=== PATIENT | male | born 1990 | race Hispanic/Latino ===

== ENCOUNTER 2018-07-11 20:53 | Emergency (ER) | payer MEDICAID ==
--- NOTE | 2018-07-11 21:17 | ED PDOC ---
Arrival/HPI - General Time Seen by Provider: 07/11/18 21:14 Historian: Patient - History of Present Illness Narrative History of Present Illness (Text): 07/11/18 21:14 27 y/o male, no significant pmh, nkda, last tetanus doesn't remember, c/o rt. hand abrasion and fall about 2 hours ago. Pt. stated that he was running and playing soccer, fall and landed on the rt. hand region, sustained abrasion on the rt. hand dorsum and bruising on the rt. hand palmar, no wrist pain, no forearm or elbow pain, no numbness or tingling, no rash, no night sweat, no head /neck/back injury, no other medical or psychological complaints. Past Medical History - Provider Review Nursing Documentation Reviewed: Yes Family/Social History - Physician Review Nursing Documentation Reviewed: Yes Family/Social History: Unknown Family HX Allergies/Home Meds Allergies/Adverse Reactions: Allergies tree nut Allergy (Verified 07/11/18 21:25) ANAPHYLAXIS milk Adverse Reaction (Verified 07/11/18 21:25) DIARRHEA Review of Systems - Review of Systems Constitutional: absent: Fatigue, Fevers Eyes: absent: Vision Changes ENT: absent: Hearing Changes Respiratory: absent: SOB, Cough, Sputum Cardiovascular: absent: Chest Pain Gastrointestinal: absent: Abdominal Pain, Nausea, Vomiting Musculoskeletal: Arthralgias, Myalgias. absent: Back Pain, Neck Pain, Joint Swelling Skin: Skin Lesions (+abrasion). absent: Rash, Pruritis Neurological: absent: Headache, Dizziness Psychiatric: absent: Anxiety, Depression, Suicidal Ideation Physical Exam Vital Signs Temp Pulse Resp BP Pulse Ox 07/11/18 23:11 62 18 99 07/11/18 21:19 98.7 F 88 18 120/77 97 - Systems Exam Head: Present: Atraumatic, Normocephalic Pupils: Present: PERRL Extroacular Muscles: Present: EOMI Conjunctiva: Present: Normal Mouth: Present: Moist Mucous Membranes Neck: Present: Normal Range of Motion. No: MIDLINE TENDERNESS, Paraspinal Tenderness Respiratory/Chest: Present: Clear to Auscultation, Good Air Exchange. No: Respiratory Distress, Accessory Muscle Use Cardiovascular: Present: Regular Rate and Rhythm, Normal S1, S2. No: Murmurs Abdomen: No: Tenderness, Distention, Peritoneal Signs Back: Present: Normal Inspection. No: CVA Tenderness, Midline Tenderness Upper Extremity: Present: Normal Inspection, Normal ROM, NORMAL PULSES, Neurovascularly Intact, Capillary Refill < 2s, Other (Rt. hand/wrist: visible superficial abrasion approx. 1cm noted, +ttp on the 4th metacarpal region with mild ecchymosis, no laceration, no wrist or scaphoid tenderness, FROM without limitation, sensation intact, motor 5/5, +radial pulse, capillary refill< 2 seconds, neurovascular intact. ). No: Cyanosis, Edema, Deformity Lower Extremity: Present: Normal Inspection, NORMAL PULSES, Normal ROM, Neurovascularly Intact, Capillary Refill < 2 s. No: Edema, Deformity Neurological: Present: GCS=15, CN II-XII Intact, Speech Normal Skin: Present: Warm, Dry, Normal Color. No: Rashes Psychiatric: Present: Alert, Oriented x 3, Normal Insight, Normal Concentration Medical Decision Making ED Course and Treatment: 07/11/18 21:19 Differential: Fracture vs. dislocation vs. contusion vs. abrasion -Rt. hand xray -Wound irrigate abrasion with saline, clean with betadine, bacitracin and gauze dressing. -Tdap/motrin -Observe and reassess 07/11/18 22:27 -Rt. hand xray: displaced based 5th metacarpal fracture -Post reduction xray order. 07/11/18 22:30 PROCEDURE: REDUCTION Performed by the emergency provider Time: 22:30 Consent: Informed consent, after discussion of the risks, benefits, and alternatives to the procedure, was obtained. Timeout: A timeout to verify the correct patient, procedure, and site was performed immediately prior to the procedure. Indication: Rt. hand displaced fracture Location: Rt. hand 5th metacarpal base Sedation: None, 1cc hematoma block with 1% lidocaine after clean with alcohol pad and betadine, bandaid. Pre-procedure neurovascular status: Distal neurovascular status intact. Technique: axial traction. Post-procedure neurovascular status: Distal neurovascular status remains intact. Confirmation: Post-reduction films confirm reduction with improvement. See post- procedure X-Ray interpretation. Post-procedure: Patient tolerated the procedure well with no immediate complications. The reduction site was immobilized with ulnar gutter splint and sling. 07/11/18 23:00 -Post reduction xray show improvement. -All radiology result discussed with the patient including the reduction, importance of outpatient hand follow up. -Discharge home with motrin, ulnar gutter splint, splint, copy of CD, list of hand specialists and pmd within 2 days, return to the ER for any new or worsening signs or symptoms. - RAD Interpretation Radiology Orders: 07/11/18 21:22 HAND RIGHT 3 VIEWS [RAD] Stat 07/11/18 22:25 HAND RIGHT 3 VIEWS [RAD] Stat Rt. hand xray initial: acute proximal base 5th metacarpal fracture. Rt. hand xray post reduction: no significant changes Order Takers Supervisor: Radiologist - Medication Orders Current Medication Orders: Discontinued Medications Ibuprofen (Motrin Tab) 600 mg PO STAT STA Stop: 07/11/18 21:23 Last Admin: 07/11/18 21:29 Dose: 600 mg MAR Pain/Vitals Document 07/11/18 21:29 SF (Rec: 07/11/18 21:29 SF [id number]) Pain Reassessment Is This A Pain ReAssessment? Yes Sleep Is patient sleeping during reassessment? 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 Disposition/Present on Arrival - Present on Arrival Any Indicators Present on Arrival: No History of DVT/PE: No History of Uncontrolled Diabetes: No Urinary Catheter: No History of Decub. Ulcer: No - Disposition Have Diagnosis and Disposition been Completed?: Yes Diagnosis: Fall, Hand contusion, Fractured hand Disposition: HOME/ ROUTINE Disposition Time: 21:20 Patient Plan: Discharge Condition: IMPROVED Additional Instructions: -Discharge home with motrin, ulnar gutter splint, splint, copy of CD, list of hand specialists and pmd within 2 days, return to the ER for any new or worsening signs or symptoms. Prescriptions: Ibuprofen [Motrin Tab] 600 mg PO QID PRN #30 tab PRN Reason: Other Referrals: Teo Gomez MD [Staff Provider] - Follow up with primary Brandin Salinas MD [Staff Provider] - Follow up with primary Ebonie Henriquez MD [Non-Staff] - Follow up with primary Roberto Cooper DO [Staff Provider] - Follow up with primary Forms: WORK NOTE
[2018-07-11] MEDS ORDERED: TDAP Vaccine 0.5 mL Syr IM ONE (21:22)
[2018-07-11 21:26] VITALS: BP 120/77; RESP 18; TEMP 98.7
[2018-07-11 23:15] VITALS: PULSE 62; O2SAT 99
--- NOTE | 2018-07-12 10:58 | RAD ---
PROCEDURE: Right Hand Radiographs. HISTORY: rt. hand fall and injury COMPARISON: None. FINDINGS: BONES: Proximal right 5th metacarpal fracture. JOINTS: Normal. No osteoarthritic changes. SOFT TISSUES: Soft tissue swelling attests to the acuity of the fracture. OTHER FINDINGS: None. IMPRESSION: Acute proximal fracture right 5th metacarpal without intra-articular component. Angulation of the major fracture fragments identified. Concordant results with the preliminary interpretation rendered by the emergency department physician procedure.
--- NOTE | 2018-07-12 11:01 | RAD ---
PROCEDURE: Right Hand Radiographs. HISTORY: reduction COMPARISON: July 11, 2018. 21:42. FINDINGS: BONES: Stable appearance, configuration of major fracture fragments proximal 5th metacarpal. JOINTS: Normal. No osteoarthritic changes. SOFT TISSUES: Soft tissue swelling attests to the acuity of the fracture. OTHER FINDINGS: None. IMPRESSION: No significant change following close reduction. Concordant results with the preliminary interpretation rendered by the emergency department physician procedure.
== END 2018-07-11 23:25 | disposition home or self-care (01) ==
LOC: ED 20:53
DX: S62.316A Displaced fracture of base of fifth metacarpal bone, right hand, initial encounter for closed fracture (principal); S60.221A Contusion of right hand, initial encounter; W18.39XA Other fall on same level, initial encounter; Y93.66 Activity, soccer; Y92.39 Other specified sports and athletic area as the place of occurrence of the external cause; Z23 Encounter for immunization

== ENCOUNTER 2019-02-22 23:00 | Emergency (ER) | payer MEDICAID ==
[2019-02-23 00:01] VITALS: BP 106/71; PULSE 68; RESP 18; TEMP 98.4; O2SAT 96
--- NOTE | 2019-02-23 01:48 | ED PDOC ---
Arrival/HPI - General Chief Complaint: Finger,Hand,&Wrist Time Seen by Provider: 02/22/19 23:06 Historian: Patient - History of Present Illness Narrative History of Present Illness (Text): 02/23/19 01:46 28-year-old male presents today with left fifth finger pain status post injury. Patient states he was carrying boxes down the stairs and hit his hand into the railing. Patient is complaining of pain to the middle phalanx of the left fifth finger. Patient states he does not necessarily have pain but he feels as if his finger feels weird. He denies numbness weakness or tingling in the extremity. He denies limited range of motion of the finger. No medications have been taken for pain at home. Patient is refusing any medications for pain at present time. No other complaints Past Medical History - Provider Review Nursing Documentation Reviewed: Yes - Travel History Have you recently traveled outside [place] w/in the past 3 mons?: No - Tetanus Immunization Tetanus Immunization: Unknown - Cardiac Hx Cardiac Disorders: No - Pulmonary Hx Respiratory Disorders: No - Neurological Hx Neurological Disorder: No - HEENT Hx HEENT Disorder: No - Renal Hx Renal Disorder: No - Endocrine/Metabolic Hx Endocrine Disorders: No - Hematological/Oncological Hx Blood Disorders: No - Integumentary Hx Dermatological Disorder: No - Musculoskeletal/Rheumatological Hx Musculoskeletal Disorders: No - Gastrointestinal Hx Gastrointestinal Disorders: (lactose intolerance) - Genitourinary/Gynecological Hx Genitourinary Disorders: No - Psychiatric Hx Psychophysiologic Disorder: No Hx Substance Use: No - Anesthesia Hx Anesthesia: Yes Hx Anesthesia Reactions: No Family/Social History - Physician Review Nursing Documentation Reviewed: Yes Family/Social History: Unknown Family HX Smoking Status: Never Smoked Hx Alcohol Use: No Hx Substance Use: No Allergies/Home Meds Allergies/Adverse Reactions: Allergies tree nut Allergy (Verified 02/22/19 23:55) ANAPHYLAXIS milk Adverse Reaction (Verified 02/22/19 23:55) DIARRHEA Review of Systems - Review of Systems Constitutional: absent: Fatigue, Fevers Respiratory: absent: SOB, Cough Cardiovascular: absent: Chest Pain, Palpitations Gastrointestinal: absent: Abdominal Pain, Nausea, Vomiting Musculoskeletal: Arthralgias. absent: Back Pain Skin: absent: Rash, Pruritis, Laceration Neurological: absent: Headache, Dizziness Physical Exam Vital Signs Reviewed: Yes Vital Signs Temp Pulse Resp BP Pulse Ox 02/22/19 23:59 98.4 F 68 18 106/71 96 Temperature: Afebrile Blood Pressure: Normal Pulse: Regular Respiratory Rate: Normal Appearance: Positive for: Well-Appearing, Non-Toxic, Comfortable Pain Distress: None Mental Status: Positive for: Alert and Oriented X 3 - Systems Exam Head: Present: Atraumatic Mouth: Present: Moist Mucous Membranes Neck: Present: Normal Range of Motion Respiratory/Chest: Present: Clear to Auscultation Cardiovascular: Present: Regular Rate and Rhythm Upper Extremity: Present: Normal ROM, NORMAL PULSES, Tenderness (Left fifth finger there is no edema no erythema no ecchymosis. There is minimal tenderness over the middle phalanx. Full range of motion of the finger. Sensation and distal pulses intact. Cap refill less than 2), Neurovascularly Intact, Capillary Refill < 2s. No: Swelling, Erythema, Deformity Neurological: Present: GCS=15 Skin: Present: Warm, Dry, Normal Color. No: Rashes Psychiatric: Present: Alert, Oriented x 3 Medical Decision Making ED Course and Treatment: 02/23/19 01:48Patient is nontoxic well-appearing in no distress her vital signs are stable. XRAY Left 5th finger: no fx finger splint applied. I discussed all results in depth with the patient advised follow-up with the orthopedist hand specialist/ within the next 2 days. I've advised me to return if symptoms worsen persist or if new concerning symptoms develop. Patient verbalizes understanding of discharge instructions and need for immediate followup. All aspects of this case were discussed the attending of record. IMPRESSION: Contusion, finger Motrin every 6 hours as needed for pain Use finger splint Follow-up with the bone doctor/hand specialist within the next 2 days Return immediately if symptoms worsen persist or if new concerning symptoms develop - RAD Interpretation Radiology Orders: 02/23/19 00:00 HAND LEFT 5TH DIGIT (FINGER) [RAD] Stat Disposition/Present on Arrival - Present on Arrival Any Indicators Present on Arrival: No History of DVT/PE: No History of Uncontrolled Diabetes: No Urinary Catheter: No History of Decub. Ulcer: No History Surgical Site Infection Following: None - Disposition Have Diagnosis and Disposition been Completed?: Yes Diagnosis: Contusion, finger Disposition: HOME/ ROUTINE Disposition Time: 00:45 Patient Plan: Discharge Condition: GOOD Discharge Instructions (ExitCare): Contusion (DC), Common Finger Injuries (DC) Additional Instructions: Motrin every 6 hours as needed for pain Use finger splint Follow-up with the bone doctor/hand specialist within the next 2 days Return immediately if symptoms worsen persist or if new concerning symptoms develop Referrals: Meghana Marcano MD [Primary Care Provider] - Follow up with primary Pedro Luis Dow III, MD [Medical Doctor] - Follow up with primary [facility] [place] [Outside] - Follow up with [facility] [Outside] - Follow up with primary Forms: [employer] ([place] Islander), WORK NOTE
--- NOTE | 2019-02-23 09:57 | RAD ---
PROCEDURE: Left Hand and 5th digit radiographs. HISTORY: hit finger, pain to middle phalanx COMPARISON: None. TECHNIQUE: 3 views obtained. FINDINGS: BONES: Normal. No fracture. JOINTS: Normal. No osteoarthritic changes. SOFT TISSUES: Normal. OTHER FINDINGS: None. IMPRESSION: Normal left hand radiographs.
== END 2019-02-23 01:52 | disposition home or self-care (01) ==
LOC: ED 23:00
DX: S60.052A Contusion of left little finger without damage to nail, initial encounter (principal); W22.8XXA Striking against or struck by other objects, initial encounter

== ENCOUNTER 2019-04-26 01:46 | Emergency (ER) | payer MEDICAID ==
[2019-04-26 02:06] VITALS: BP 124/76; PULSE 62; RESP 14; TEMP 98; O2SAT 96
--- NOTE | 2019-04-26 02:37 | ED PDOC ---
Arrival/HPI - General Chief Complaint: Male Genitourinary Time Seen by Provider: 04/26/19 01:51 Historian: Patient - History of Present Illness Narrative History of Present Illness (Text): 04/26/19 02:34 Kael Burks is a 28 year old male, with no significant past medical history, who presents to the ED for evaluation after hearing a "pop and a crack" during sexual intercourse this evening. Patient states he has been unable to get an erection since then. Patient denies any fever, chills, urinary symptoms, back pain, or any other complaints. Symptom Onset: Sudden Symptom Course: Unchanged Activities at Onset: Light Context: Home Past Medical History - Provider Review Nursing Documentation Reviewed: Yes Primary Care Provider: Elizabeth Moralez - Infectious Disease Hx of Infectious Diseases: None - Tetanus Immunization Tetanus Immunization: Unknown - Cardiac Hx Cardiac Disorders: No - Pulmonary Hx Respiratory Disorders: No - Neurological Hx Neurological Disorder: No - HEENT Hx HEENT Disorder: No - Renal Hx Renal Disorder: No - Endocrine/Metabolic Hx Endocrine Disorders: No - Hematological/Oncological Hx Blood Disorders: No - Integumentary Hx Dermatological Disorder: No - Musculoskeletal/Rheumatological Hx Musculoskeletal Disorders: No - Gastrointestinal Hx Gastrointestinal Disorders: (lactose intolerance) - Genitourinary/Gynecological Hx Genitourinary Disorders: No - Psychiatric Hx Psychophysiologic Disorder: No Hx Substance Use: No - Anesthesia Hx Anesthesia: Yes Hx Anesthesia Reactions: No Family/Social History - Physician Review Nursing Documentation Reviewed: Yes Family/Social History: Unknown Family HX Smoking Status: Never Smoked Hx Alcohol Use: No Hx Substance Use: No Allergies/Home Meds Allergies/Adverse Reactions: Allergies tree nut Allergy (Verified 04/26/19 02:06) ANAPHYLAXIS milk Adverse Reaction (Verified 04/26/19 02:06) DIARRHEA Home Medications: Home Meds Medication Instructions Recorded Confirmed No Known Home Med 04/26/19 04/26/19 Review of Systems - Physician Review All systems were reviewed & negative as marked: Yes - Review of Systems Constitutional: Normal. absent: Fevers Eyes: Normal ENT: Normal Respiratory: Normal. absent: SOB, Cough Cardiovascular: Normal. absent: Chest Pain Gastrointestinal: Normal. absent: Abdominal Pain, Diarrhea, Nausea, Vomiting Genitourinary Male: Other Musculoskeletal: Normal. absent: Back Pain, Neck Pain Skin: Normal. absent: Rash Neurological: Normal. absent: Headache, Dizziness Endocrine: Normal Hemo/Lymphatic: Normal Psychiatric: Normal Physical Exam Vital Signs Reviewed: Yes Vital Signs Temp Pulse Resp BP Pulse Ox 04/26/19 02:03 98.0 F 62 14 124/76 96 Temperature: Afebrile Blood Pressure: Normal Pulse: Regular Respiratory Rate: Normal Appearance: Positive for: Well-Appearing, Non-Toxic, Comfortable Pain Distress: None Mental Status: Positive for: Alert and Oriented X 3 - Systems Exam Head: Present: Atraumatic, Normocephalic Pupils: Present: PERRL Extroacular Muscles: Present: EOMI Conjunctiva: Present: Normal Mouth: Present: Moist Mucous Membranes Neck: Present: Normal Range of Motion Respiratory/Chest: Present: Clear to Auscultation, Good Air Exchange. No: Respiratory Distress, Accessory Muscle Use Cardiovascular: Present: Regular Rate and Rhythm, Normal S1, S2. No: Murmurs Abdomen: No: Tenderness, Distention, Peritoneal Signs Genitourinary Male: Present: Normal External Genitalia. No: Penile Swelling, O ther (No palpable tenderness to penis, no evidence of ecchymosis, penis is flaccid) Back: Present: Normal Inspection Upper Extremity: Present: Normal Inspection. No: Cyanosis, Edema Lower Extremity: Present: Normal Inspection. No: Edema Neurological: Present: GCS=15, CN II-XII Intact, Speech Normal Skin: Present: Warm, Dry, Normal Color. No: Rashes Psychiatric: Present: Alert, Oriented x 3, Normal Insight, Normal Concentration Medical Decision Making ED Course and Treatment: 04/26/19 02:34 Impression: 28 year old male presents after hearing his penis "pop and crack" during sexual intercourse this evening. Plan: -- Reassess and disposition Progress Notes: 04/26/19 02:[address] Perdue, urologist, who is aware and agrees with plan. States he will see pt in his office. - Scribe Statement The provider has reviewed the documentation as recorded by the Gail Epps Provider Scribe Attestation: All medical record entries made by the Scribe were at my direction and personally dictated by me. I have reviewed the chart and agree that the record accurately reflects my personal performance of the history, physical exam, medical decision making, and the department course for this patient. I have also personally directed, reviewed, and agree with the discharge instructions and disposition. Disposition/Present on Arrival - Present on Arrival Any Indicators Present on Arrival: No History of DVT/PE: No History of Uncontrolled Diabetes: No Urinary Catheter: No History of Decub. Ulcer: No History Surgical Site Infection Following: None - Disposition Have Diagnosis and Disposition been Completed?: Yes Diagnosis: Penis injury Disposition: HOME/ ROUTINE Disposition Time: 02:43 Patient Plan: Discharge Condition: GOOD Additional Instructions: Must follow up with the urologist today in his office. will call you to arrange the exact time. Referrals: Conner Perdue MD [Staff Provider] - Follow up with primary Forms: [email or web address] (Thai)
== END 2019-04-26 02:50 | disposition home or self-care (01) ==
LOC: ED 01:46
DX: S39.94XA Unspecified injury of external genitals, initial encounter (principal); X58.XXXA Exposure to other specified factors, initial encounter